=== PATIENT | male | born 1960 | race Caucasian/White ===

== ENCOUNTER 2020-09-07 10:05 | Emergency (ER) | payer OTHER, SELFPAY ==
[2020-09-07 10:06] VITALS: BP 143/72; PULSE 67; RESP 16; TEMP 36.8; O2SAT 100; BMI 16.2
[2020-09-07 10:21] VITALS: BP 143/72; PULSE 67; RESP 16; TEMP 36.8; O2SAT 100
--- NOTE | 2020-09-07 10:33 | EX.ED.DYSGE1 ---
HPI History of Present Illness Chief Complaint: Cellulitis Narrative Narrative: Right hand contusion occurred . Patient basically reports he was working with a small calf trying to feed it with a bottle of the calf position itself in such a way that he inadvertently punched a large piece of wood as he was trying to position the bottle in the calves mouth he said contusion to the hand since this occurred persistent discomfort and came in for evaluation he has no past history no history of MRSA diabetes or other conditions he is right-hand dominant tetanus is not clear Past medical history nothing chronic per patient PFSH PFSH Home Medications cephalexin 500 mg PO Q6 #40 capsule 09/07/20 [Rx Last Taken Unknown] ibuprofen 600 mg PO Q6H PRN PRN #20 tablet 09/07/20 [Rx Last Taken Unknown] Allergy/AdvReac Type Severity Reaction Status Date / Time No Known Allergies Allergy Verified 09/07/20 10:07 Social History Smoking Status: Former smoker ROS ROS ED ROS Narrative Right hand contusion only Constitutional Constitutional ED: Reports subjective, sweats and other; Denies chills, fever(s) or weight loss Eyes Eyes: Denies blurry vision or change in vision ENT ENT ED: Denies ear pain Cardiovascular Cardiovascular: Denies chest pain or palpitations Respiratory/Chest Respiratory/Chest: Denies dyspnea Gastrointestinal Gastrointestinal: Denies abdominal pain, nausea or vomiting Genitourinary Genitourinary ED: Denies dysuria or hematuria Musculoskeletal Musculoskeletal: Denies arthralgias or myalgias Integumentary Reports rash; Denies abscess Neurologic Neurologic: Denies weakness Psychiatric Psychiatric: Denies anxiety or depression Endocrine Endocrinology: Denies polydipsia or polyuria Allergic/Immunologic Allergic/Immunologic ED: Denies urticaria EXAM Physical Exam Narrative Exam Narrative: Has some contusion to the right hand he has a small abrasion over the fifth knuckle finger function is normal thumb function is normal, there is some edema to the dorsal hand he has altered skin bilaterally he indicates he does not feel that his hand is red or swollen necessarily his forearm wrist elbow unremarkable see above neurovascular function normal Const Vital Signs: 09/07/20 10:06 09/07/20 10:21 Temperature 98.2 F 98.2 F Temperature Source Temporal Temporal Pulse Rate 67 67 Respiratory Rate 16 16 Blood Pressure 143/72 H 143/72 H Blood Pressure Mean 95 95 Pulse Ox 100 100 Oxygen Delivery Method Room Air Room Air Positive well developed General Appearance ED: well developed HEENT Reports normocephalic Negative for trauma Eyes EOMs intact bilaterally Neck supple Chest Wall inspection of chest normal Resp normal respiratory effort Cardio regular rate GI non-tender and non-distended Back/Spine Back/Spine Narrative: unremarkable Extremity normal to inspection Neuro oriented x3 and CN's II-XII intact bilaterally Sensorium / Orientation: alert Psych mental status grossly normal Skin no rashes or lesions noted MDM MDM MDM Narrative Medical decision making narrative: X-ray of the right hand will be obtained Per review multiimages I did not notice any abnormalities normal bony structures radiology concurs see the reports, at this time patient is comfortable discharge home he will be fitted with a Velcro splint Keflex as to concern for possible early cellulitis follow-up with Dr. Nino or outpatient providers of his choice and return for change in symptoms Home stable Final impression right hand contusion Radiography Diagnostic Testing: Radiology Impression Hand X-Ray 09/07/20 10:44 IMPRESSION: Normal x-ray examination of the hand. Electronically Signed: Jenaro Chang MD at 11:26 EDT Tel , Service support , Discharge Plan Triage Chief Complaint: Cellulitis ED Provider: Bradley Chen Dx/Rx/DC Orders Instructions: Bone Contusion Prescriptions: New cephalexin [cephalexin] 500 MG capsule 500 mg PO Q6 Qty: 40 RF: 0 ibuprofen 600 MG tablet 600 mg PO Q6H PRN PRN (Reason: pain) Qty: 20 RF: 0 Primary Care Provider: Loi Moise Referrals: Loi Moise MD [Primary Care Provider] - iRcki Nino MD [STAFF PHYSICIAN] -
--- NOTE | 2020-09-07 10:44 | RAD_ITS ---
STUDY: X-RAY - RIGHT HAND REASON FOR EXAM: Male, 60 years old. trauma TECHNIQUE: 3 view(s) of the hand. COMPARISON: None. FINDINGS: Normal radiocarpal articulation. Normal distal radioulnar joint. Normal visualized carpal bones. Normal carpal articulations Normal carpometacarpal articulation of the thumb. Normal second through fifth carpometacarpal joints. Normal metacarpi. Normal metacarpophalangeal joint of the thumb. Normal interphalangeal joint of the thumb. Normal proximal and distal phalanges of the thumb. Normal metacarpophalangeal joints of the second through fifth fingers. Normal proximal and distal interphalangeal joints of the second through fifth fingers. Normal phalanges of the second through fifth fingers. The soft tissue structures are unremarkable. RAD/Hand Min 3 Views IMPRESSION: Normal x-ray examination of the hand. Electronically Signed: Jenaro Chang MD at 11:26 EDT Tel , Service support ,
[2020-09-07] MEDS: Naproxen 375 MG Tablet PO (10:57)
[2020-09-07] MEDS: Cephalexin 250 MG Capsule 500 MG PO (12:01)
== END 2020-09-07 12:22 | disposition home or self-care (01) ==
LOC: ED 11:29
PROVIDERS: Emergency Provider Emergency Medicine; PCP Family Medicine
DX: S60.221A Contusion of right hand, initial encounter (principal); Z87.891 Personal history of nicotine dependence; W22.8XXA Striking against or struck by other objects, initial encounter; Y93.K9 Activity, other involving animal care; Y92.89 Other specified places as the place of occurrence of the external cause; Y99.8 Other external cause status
CPT/HCPCS: 73130; 99284